=== PATIENT | male | born 1955 | race Caucasian/White ===

== ENCOUNTER → 2023-12-10 06:21 | Day surgery (SDC) | payer MEDICARE, SELFPAY ==
[2023-12-10 07:17] LABS: Glucose - Point of Care 174 mg/dl (70-99)
== END ==
LOC: GI 06:21
PROVIDERS: ATTENDING PHYSICIAN Internal Medicine Gastroenterology
DX: Z12.11 Encounter for screening for malignant neoplasm of colon (principal); K64.0 First degree hemorrhoids; D12.4 Benign neoplasm of descending colon; K62.1 Rectal polyp; K63.5 Polyp of colon; Z86.010 Personal history of colon polyps
CPT/HCPCS: 45385; 45380; 88305; 82962

== ENCOUNTER → 2025-02-18 06:55 | Outpatient (REF) | payer MEDICARE, SELFPAY | LOC: RAD 06:55 | PROVIDERS: ATTENDING PHYSICIAN Family Medicine | DX: R22.1 Localized swelling, mass and lump, neck (principal) | CPT/HCPCS: 76536 ==

== ENCOUNTER → 2025-03-09 11:42 | Outpatient (REF) | payer MEDICARE, SELFPAY | LOC: RAD 11:42 | PROVIDERS: ATTENDING PHYSICIAN Family Medicine | DX: R22.1 Localized swelling, mass and lump, neck (principal) | CPT/HCPCS: 70492; Q9967 ==

== ENCOUNTER → 2025-05-13 12:30 | Outpatient (REF) | payer MEDICARE, SELFPAY ==
[2025-05-13 12:53] VITALS: BP 126/83; BP_SYST 94
== END ==
LOC: RADI 12:30
PROVIDERS: ATTENDING PHYSICIAN Otolaryngology; FAMILY PHYSICIAN Family Medicine
DX: D11.0 Benign neoplasm of parotid gland (principal)
CPT/HCPCS: 42400; 76942; 88173; 88305; 88333